=== PATIENT | female | born 1985 | race Caucasian/White ===

== ENCOUNTER 2017-06-12 07:14 | Inpatient (IN) | payer BC ==
[2017-06-12] VITALS (34 sets, daily range): BP systolic 108–146; BP diastolic 64–81; PULSE 61–96; RESP 18–20; TEMP 98.1–98.3
[~2017-06-12] VITALS: Ht 167.6 cm; Wt 78.0 kg
[~2017-06-12 07:14] MED LIST: IRON27TA PO; PREN29CH PO
[2017-06-12 09:08] LABS: AUTOMATED NEUTROPHIL # 7.7 TH/MM3 (1.8-7.7); BASOPHIL # 0.1 TH/MM3 (0-0.2); BASOPHIL % 0.6 % (0.0-2.0); EOSINOPHIL % 0.2 % (0.0-4.0); HEMATOCRIT 38.4 % (35.0-46.0); LYMPH % 20.6 % (9.0-44.0); LYMPHOCYTE # 2.3 TH/MM3 (1.0-4.8); MEAN CELL VOLUME 92.3 FL (80.0-100.0); MEAN CORPUSCULAR HEMOGLOBIN 31.3 PG (27.0-34.0); MEAN CORPUSCULAR HGB CONC 33.9 % (32.0-36.0); MEAN PLATELET VOLUME 8.8 FL (7.0-11.0); MONO % 8.4 % (0.0-8.0); MONOCYTE # 0.9 TH/MM3 (0-0.9); NEUT % 70.2 % (16.0-70.0); PLATELET COUNT 214 TH/MM3 (150-450); RED BLOOD COUNT 4.16 MIL/MM3 (4.00-5.30); RED CELL DISTRIBUTION WIDTH 13.6 % (11.6-17.2)
[2017-06-12] MEDS ORDERED: OXYTOCIN 30 UNITS/NS 500ML PREMIX IV PRN (09:30)
[2017-06-12 09:45] LABS: BILIRUBIN, URINE NEG (NEG); BLOOD, URINE NEG (NEG); GLUCOSE,URINE NEG (NEG); KETONE, URINE NEG (NEG); NITRITE,URINE NEG (NEG); PH, URINE 7.5 (5.0-8.5); SQUAMOUS EPITHELIAL CELL URINE 1 /hpf (0-5); URINE COLOR LIGHT-YELLOW (YELLW/STRAW); URINE LEUKOCYTE ESTERASE NEG (NEG)
[2017-06-12] MEDS ORDERED: LIDOCAINE HCL 1% 50 ML VIAL I-DERMAL PRN (10:15)
[2017-06-12] MEDS ORDERED: OXYTOCIN 30 UNITS 500ML PREMIX IV ONE (10:15)
[2017-06-12] MEDS ORDERED: CITRIC ACID-SODIUM CITRATE LIQ 30 ML UDC PO SCH (10:15)
[2017-06-12] MEDS ORDERED: NS 500 ML BOLUS IV PRN (10:15)
[2017-06-12] MEDS ORDERED: LACTATED RINGER'S 1000 ML BOLUS IV PRN (10:15)
[2017-06-12] MEDS ORDERED: NS 1000 ML IV PRN (10:15)
[2017-06-12] MEDS ORDERED: LIDOCAINE HCL 1% 50 ML VIAL INFIL PRN (10:15)
[2017-06-12] MEDS ORDERED: MINERAL OIL 10 ML VIAL TOPICAL PRN (10:15)
[2017-06-12] MEDS: LACTATED RINGER'S 1000 ML IV SCH ×3 (10:50→19:01)
[2017-06-12] MEDS ORDERED: LIDOCAINE HCL 1% PF 30 ML VIAL ONE (11:51)
--- NOTE | 2017-06-12 11:51 | MH ---
cc: Francisco Almaraz MD DATE OF ADMISSION: 06/12/2017 ADMITTING DIAGNOSES: 1. Term . 2. Early labor. HISTORY OF PRESENT ILLNESS: The patient is a 31-year-old white female, para 2-0-0-2, with EDC of 06/14/2017 by early ultrasound. Her preop course was benign. She developed contractions about 2:30 this morning that increased throughout the morning. She was seen at the center with a cervix about 3-4 cm, 70%, vertex, intact, -1. She was admitted and due to the labor slowing after admission was given Pitocin augmentation. PAST MEDICAL HISTORY: Previous surgery, none. MEDICATIONS: Vitamins. ALLERGIES: BACTRIM CAUSES A RASH. TRANSFUSIONS: None. SOCIAL HISTORY: She is a physical design engineer. She is . Alcohol, tobacco and drugs: None. FAMILY HISTORY: Noncontributory. PHYSICAL EXAMINATION: GENERAL: Reveals a well-nourished, well-developed white female. VITAL SIGNS: Stable. HEENT: Normal. CHEST: Clear. Regular rate. BREASTS: Symmetrical. ABDOMEN: Gravid. EFW 3500 grams. PELVIC: Cervix is 3-4, vertex 70%, intact, AROM. PLAN: Anticipate vaginal delivery. Patient prefers natural childbirth. Francisco Almaraz MD JAW/TI , 11:21 AM , 11:50 AM
[2017-06-12] MEDS ORDERED: SODIUM CHLORIDE 0.9% FLUSH 10 ML FLUSH IV FLUSH PRN (12:30)
[2017-06-12] MEDS: IBUPROFEN 800 MG TAB PO PRN ×2 (12:56→21:16)
[2017-06-12] MEDS ORDERED: WITCH HAZEL 50%/GLYCERIN 12.5% 40 PAD JAR TOPICAL PRN (13:00)
[2017-06-12] MEDS ORDERED: oxyCODONE/ACETAMINOPHEN 5 MG/325 MG TAB PO PRN ×2 (13:00)
[2017-06-12] MEDS ORDERED: ZOLPIDEM TARTRATE 5 MG TAB PO PRN (13:00)
[2017-06-12] MEDS ORDERED: ACETAMINOPHEN 325 MG TAB PO PRN (13:00)
[2017-06-12] MEDS ORDERED: ALUMINUM/MAGNESIUM/SIMETH 30 ML CUP PO PRN (13:00)
[2017-06-12] MEDS ORDERED: BENZOCAINE 20% TOPICAL SPRAY 60 ML CAN TOPICAL PRN (13:00)
[2017-06-12] MEDS ORDERED: ONDANSETRON ODT 4 MG TAB PO PRN (13:00)
[2017-06-12] MEDS ORDERED: OXYTOCIN 30 UNITS-500ML PREMIX 500 ML IV SCH (13:00)
[2017-06-12] MEDS ORDERED: DIPHTH/TETANUS/ACEL PERTUSSIS (BOOSTER) 0.5 ML VIAL/PFS IM ONE (16:00)
[2017-06-12] MEDS ORDERED: MEASLES, MUMPS, RUBELLA VACCINE 0.5 ML VIAL SQ ONE (16:00)
[2017-06-12] MEDS ORDERED: SODIUM CHLORIDE 0.9% FLUSH 10 ML FLUSH IV FLUSH SCH (21:00)
[2017-06-12] MEDS: DOCUSATE SODIUM 50 MG/SENNA 8.6 MG TAB PO PRN (21:16)
[2017-06-13] MEDS: IBUPROFEN 800 MG TAB PO PRN ×2 (05:56→16:05)
[2017-06-13 06:54] LABS: AUTOMATED NEUTROPHIL # 8.7 TH/MM3 (1.8-7.7); BASOPHIL % 0.4 % (0.0-2.0); EOSINOPHIL % 0.4 % (0.0-4.0); HEMATOCRIT 35.5 % (35.0-46.0); HEMOGLOBIN 11.9 GM/DL (11.6-15.3); LYMPH % 20.9 % (9.0-44.0); LYMPHOCYTE # 2.5 TH/MM3 (1.0-4.8); MEAN CORPUSCULAR HEMOGLOBIN 31.1 PG (27.0-34.0); MEAN CORPUSCULAR HGB CONC 33.4 % (32.0-36.0); MONO % 6.5 % (0.0-8.0); MONOCYTE # 0.8 TH/MM3 (0-0.9); NEUT % 71.8 % (16.0-70.0); PLATELET COUNT 179 TH/MM3 (150-450); RED BLOOD COUNT 3.82 MIL/MM3 (4.00-5.30); RED CELL DISTRIBUTION WIDTH 13.5 % (11.6-17.2); WHITE BLOOD COUNT 12.1 TH/MM3 (4.0-11.0)
[2017-06-13 08:17] VITALS: BP 104/62; PULSE 67
[2017-06-13 08:18] VITALS: RESP 16; TEMP 98.2
[2017-06-13] MEDS: DOCUSATE SODIUM 50 MG/SENNA 8.6 MG TAB PO PRN (16:05)
--- NOTE | 2017-06-21 07:54 | MD ---
cc: Francisco Almaraz MD DATE OF DISCHARGE: 06/13/2017 ADMITTING DIAGNOSIS: Term , early labor. DISCHARGE. Term , early labor, delivered. HISTORY OF PRESENT ILLNESS: The patient is a 31-year-old white female, para 2-0-0-2 with an EDC of 06/14/2017 per early ultrasound. Her course was benign. She developed labor on the morning of 06/12/2017 and was admitted for delivery. She required Pitocin augmentation and then progressed to a spontaneous vaginal delivery of a viable vigorous female . did well. Requested discharge on the first day 06/13/2017. Advised to return to see me in 6 weeks and call if any abnormal symptoms. MD ANA Young/DL , 07:31 AM , 07:53 AM
== END 2017-06-13 17:03 | disposition home or self-care (01) | DRG 775 ==
LOC: HOBED 07:14 → H2EA 07:52 → H1EA 14:55
PROVIDERS: ADMIT Obstetrics & Gynecology; ATTEND Obstetrics & Gynecology
PROC: 10E0XZZ Delivery of Products of Conception, External Approach (ICD-10-PCS; principal; 2017-06-12)
DX: O80 Encounter for full-term uncomplicated delivery (principal); Z37.0 Single live birth; Z3A.40 40 weeks gestation of pregnancy; Z23 Encounter for immunization
CPT/HCPCS: 59025; 80307; 81001; 85025; G0481; J2590; J7120